=== PATIENT | female | born 1940 | race Caucasian/White ===

== ENCOUNTER 2017-07-10 09:42 | Emergency (ER) | payer MEDICARE, BC ==
[2017-07-10] MEDS: predniSONE 20 MG TAB PO (10:31)
[2017-07-10] MEDS: ALBUTEROL/IPRATROPIUM (NEB) 3 ML AMP HHN (10:31)
== END 2017-07-10 12:22 | disposition home or self-care (01) ==
LOC: FTE 09:42
DX: J45.901 Unspecified asthma with (acute) exacerbation (principal); I10 Essential (primary) hypertension
CPT/HCPCS: 71045; 94664; 99284-25